=== PATIENT | female | born 1990 | race Caucasian/White ===

== ENCOUNTER 2017-01-07 08:55 | Outpatient (CLI) | payer OTHER ==
[2017-01-07 09:30] VITALS: BP 117/63
--- NOTE | 2017-01-10 11:23 | Physician Query-Final Dx ---
ANGE NUNEZ 01/10/17 1123: Clinic Account Progress/Dx Physician Query: Please give diagnosis Date of Service January 07, 2017 at 08:55 DARRON LAUREANO DO 01/10/17 1806: Clinic Account Progress/Dx DIAGNOSIS: Diagnosis 39 week IUP Uterine contractions Prolonged latent phase labor ANGE NUNEZ January 10, 2017 11:23 DARRON LAUREANO DO January 10, 2017 18:06
== END 2017-01-07 10:40 | disposition home or self-care (01) ==
LOC: LDRP 08:55 → WSo 08:55
PROVIDERS: ATTEND Obstetrics & Gynecology
DX: O47.1 False labor at or after 37 completed weeks of gestation (principal); Z3A.39 39 weeks gestation of pregnancy
CPT/HCPCS: 99213

== ENCOUNTER 2017-01-10 10:22 | Inpatient (IN) | payer OTHER ==
[~2017-01-10] VITALS: Ht 170.2 cm; Wt 90.3 kg
[2017-01-11] MEDS ORDERED: D5 LR IV SOLUTION 1,000 ML IV SCH (12:36)
[2017-01-11 12:40] VITALS: BP 118/62
[2017-01-11 13:04] LABS: BASOPHILS % (AUTO) 0 % (0-10); EOSINOPHILS # (AUTO) 0.1 10^3/uL (0.0-0.3); EOSINOPHILS % (AUTO) 1 % (0-10); LYMPHOCYTES # (AUTO) 1.4 X 10^3 (1.0-4.0); LYMPHOCYTES % (AUTO) 14 % (12-44); MEAN CORPUSCULAR HEMOGLOBIN 32 PG (25-34); MEAN CORPUSCULAR HGB CONC 34 G/DL (32-36); MEAN CORPUSCULAR VOLUME 95 FL (80-99); MEAN PLATELET VOLUME 10.8 FL (7.4-10.4); MONOCYTES # (AUTO) 1.1 X 10^3 (0.0-1.0); MONOCYTES % (AUTO) 11 % (0-12); NEUTROPHILS # (AUTO) 7.5 X 10^3 (1.8-7.8); NEUTROPHILS % (AUTO) 74 % (42-75); PLATELET COUNT 215 10^3/uL (130-400); RED BLOOD COUNT 4.15 10^6/uL (4.35-5.85); RED CELL DISTRIBUTION WIDTH 13.6 % (10.0-14.5); WHITE BLOOD COUNT 10.1 10^3/uL (4.3-11.0)
[2017-01-11] MEDS ORDERED: ceFAZolin INJECTION 1,000 MG in NS (IVPB) 50 ML IV ONE (13:45)
--- NOTE | 2017-01-11 13:45 | History & Physical-OB ---
OB - Chief Complaint & HPI Date Date of Admission: Date of Admission: January 11, 2017 at 12:20 pm Chief Complaint/History OB-Reason for Admission/Chief: Section Hx : 1 Hx Para: 0 Expected Date of Delivery: January 10, 2017 Gestational Age in Weeks: 1 Gestational Age in Days: 0 Indication for : other (Vulvar lesion with history of HSV, and outbreak in ) Admission Nurse Assessment Rev: Yes History of Labs O neg Antibody neg RI RPR NR HBsAg NR HIV NR GC neg GBS + (cef sens.) Allergies and Home Medications Allergies Coded Allergies: No Known Drug Allergies (Unverified , 01/07/17) Home Medications No Active Prescriptions or Reported Meds OB - History Hx of Present Care: Yes Ultrasounds: Normal mid trimester US Obstetrical Complications: None Medical Complications: None (HSV ) Patient Past Medical History Hypothyroidism OB - Admission Exam Physical Exam HEENT: NCAT Heart: Rhythm Normal Lungs: Clear Abdomen: Gravid Extremities: Normal Reflexes: Normal Cervical Dilatation: 1cm Effacement: 75% Station: 0 Membranes: Intact Heart Rate: 130's Accelerations: Accelerations Present Decelerations: No Decelerations Short Term Variability: Present Director [employer] Variability: Average (6-25) Contractions on Admission: 6-10 Minutes Apart Intensity: Mild Labs Laboratory Tests Test 01/11/17 12:50 Range/Units White Blood Count 10.1 4.3-11.0 10^3/uL Red Blood Count 4.15 L 4.35-5.85 10^6/uL Hemoglobin 13.4 11.5-16.0 G/DL Hematocrit 39 35-52 % Mean Corpuscular Volume 95 80-99 FL Mean Corpuscular Hemoglobin 32 25-34 PG Mean Corpuscular Hemoglobin Concent 34 32-36 G/DL Red Cell Distribution Width 13.6 10.0-14.5 % Platelet Count 215 130-400 10^3/uL Mean Platelet Volume 10.8 H 7.4-10.4 FL Neutrophils (%) (Auto) 74 42-75 % Lymphocytes (%) (Auto) 14 12-44 % Monocytes (%) (Auto) 11 0-12 % Eosinophils (%) (Auto) 1 0-10 % Basophils (%) (Auto) 0 0-10 % Neutrophils # (Auto) 7.5 1.8-7.8 X 10^3 Lymphocytes # (Auto) 1.4 1.0-4.0 X 10^3 Monocytes # (Auto) 1.1 H 0.0-1.0 X 10^3 Eosinophils # (Auto) 0.1 0.0-0.3 10^3/uL Basophils # (Auto) 0.0 0.0-0.1 10^3/uL OB - Assessment/Plan/Diagnosis Assessment Assessment: section Plan Plan: Section Other Plan Due to finding and concern of early outbreak despite prophylaxis therapy with Valtrex, patient is agreeable to proceed with PLTCS. Risk of vaginal delivery to infant if active infection noted, weighed with patient, vs risk of . All questions were answered with her present, and they were agree able to proceed with PLTCS. Discharge Diagnosis Diagnosis: 26 yo @ 40.1 weeks Vulvar lesion, with history of HSV GBS + DARRON LAUREANO DO January 11, 2017 1:44 pm
[2017-01-11] MEDS ORDERED: CATHETER FLUSH 10 ML SYR IV SCH (14:00)
[2017-01-11 15:40] VITALS: BP 109/64
[2017-01-11] MEDS ORDERED: FAMO20TA5 PO ×2 (17:17)
[2017-01-11] MEDS ORDERED: VALA500T PO ×2 (17:18)
[2017-01-11] MEDS ORDERED: LEVO200T6 PO ×2 (17:18)
[2017-01-11] MEDS ORDERED: LACTATED RINGERS 1,000 ML IV PRN (17:28)
[2017-01-11] MEDS ORDERED: METOCLOPRAMIDE INJ 10 MG/2 ML (REGLAN) IV ONE (17:30)
[2017-01-11] MEDS ORDERED: CITRIC ACID/SOB CIT (BICITRA) 30 ML UDC PO ONE (17:30)
[2017-01-11] MEDS ORDERED: FAMOTIDINE 20MG/2ML IV (PEPCID) IV ONE (17:30)
[2017-01-11] MEDS ORDERED: ceFAZolin 2 GM/50 ML NS 50 ML ONE (18:27)
[2017-01-11] MEDS: LACTATED RINGERS 1,000 ML IV PRN ×2 (18:35→21:19)
[2017-01-11] MEDS ORDERED: LIDOCAINE/EPI 1%-1:200,000 (XYLOCAINE) 30 ML VIAL INJ PRN (19:00)
[2017-01-11] MEDS ORDERED: OXYTOCIN/NORMAL SALINE 500 ML IV SCH (19:26)
--- NOTE | 2017-01-11 19:28 | Discharge Inst-Women's Service ---
Discharge Inst-Women's Serv Depart Medication/Instructions New, Converted or Re-Newed RX: RX on Chart Consults/Follow Up Additional Follow Up: Yes Orders/Referrals Dr. Caballero in 7-10 days and in 6 weeks Activity Activity: Activity as Tolerated Driving Instructions: No Driving for 1 Week NO SMOKING: NO SMOKING Nothing Inside Vagina: No Douching, No [place], No Tampons Diet Discharge Diet: No Restrictions Symptoms to Report to : Bleeding Excessive, Pain Increased, Fever Over 101 Degrees F, Vaginal Bleeding Increase, Questions/Concerns For Any Problems or Questions: Contact Your Physician Skin/Wound Care Infection Signs and Symptoms: Increased Redness, Foul Odor of Wound, Increased Drainage, Skin Itchy or Has a Rash, Increased Swelling, Temperature Above 101 F Operative Area Clean and Dry: Keep Incision Clean/Dry Stitches/Court/Dermabond: Dermabond, Care of Stitches Bathing Instructions: DARRON Avilez DO January 11, 2017 7:28 pm
[2017-01-11 19:30] VITALS: BP 117/57
[2017-01-11] MEDS ORDERED: DOCU100C37 PO ×2 (19:30)
[2017-01-11] MEDS ORDERED: HYDR-3812 PO ×2 (19:30)
[2017-01-11] MEDS ORDERED: TETANUS,DIPTH,PERTUSS P/F (BOOSTRIX) 0.5 ML VIAL IM SCH (19:30)
[2017-01-11] MEDS ORDERED: MEASLES,MUMPS,RUBELLA 1 EA INJ SC SCH (19:30)
[2017-01-11] MEDS ORDERED: ONDANSETRON 4 MG/2 ML (SDV) Z0FRAN IVP PRN (19:30)
[2017-01-11] MEDS ORDERED: HYDROmorphone (DILAUDID) 2 MG/ML VIAL IVP PRN (19:30)
[2017-01-11] MEDS ORDERED: IBUP-1773 PO ×2 (19:30)
[2017-01-11] MEDS ORDERED: OXYTOCIN/NORMAL SALINE 1,000 ML IV ONE (19:33)
[2017-01-11] MEDS ORDERED: fentaNYL INJECTION 100 MCG/2 ML AMP ONE (19:35)
[2017-01-11 19:43] VITALS: BP 117/57
[2017-01-11] MEDS ORDERED: LACTATED RINGERS 1,000 ML IV ONE (20:10)
[2017-01-11] MEDS ORDERED: PHENYLEPHRINE 100 MCG/ML 10 ML (ANESTHESIA) SYR ONE (20:10)
[2017-01-11] MEDS ORDERED: ONDANSETRON 4 MG/2 ML (SDV) Z0FRAN ONE (20:21)
[2017-01-11] MEDS ORDERED: KETOROLAC 30 MG/ML VIAL ONE (20:45)
--- NOTE | 2017-01-11 20:56 | Progress Note-Post Operative ---
Post-Operative Progess Note Surgeon (s)/Supervisor Cab (s) Surgeon DARRON LAUREANO DO Supervisor Cab: Vincenzo- MS3 Pre-Operative Diagnosis Postdates 40.3, HSV, GBS + Post-Operative Diagnosis same Procedure & Operative Findings Date of Procedure 01/11/17 Procedure Preformed/Findings PLTCS- Live male Anesthesia Type Spinal Estimated Blood Loss Estimated blood loss (mL): 600 Specimens/Packing Specimens Removed n/a Packing: none DARRON LAUREANO DO January 11, 2017 8:56 pm
[2017-01-11] MEDS: KETOROLAC 30 MG/ML VIAL IVP SCH (21:11)
[2017-01-11 22:00] VITALS: BP 96/50
[2017-01-11 23:00] VITALS: BP 103/49
[2017-01-11] MEDS: HYDROcodone/APAP 5 MG/325 MG (LORTAB) TAB PO PRN (23:45)
[2017-01-12] MEDS: HYDROcodone/APAP 5 MG/325 MG (LORTAB) TAB PO PRN ×6 (00:45→20:17)
[2017-01-12] MEDS: CATHETER FLUSH 10 ML SYR IV SCH ×2 (01:23→03:35)
[2017-01-12] MEDS: DOCUSATE SODIUM 100 MG (COLACE) CAP PO SCH ×4 (01:23→20:16)
[2017-01-12] MEDS: KETOROLAC 30 MG/ML VIAL IVP SCH ×2 (02:33→08:26)
[2017-01-12 03:48] VITALS: BP 99/57
[2017-01-12 05:54] LABS: BASOPHILS % (AUTO) 0 % (0-10); EOSINOPHILS # (AUTO) 0.2 10^3/uL (0.0-0.3); EOSINOPHILS % (AUTO) 1 % (0-10); LYMPHOCYTES # (AUTO) 1.9 X 10^3 (1.0-4.0); LYMPHOCYTES % (AUTO) 14 % (12-44); MEAN CORPUSCULAR HEMOGLOBIN 32 PG (25-34); MEAN CORPUSCULAR HGB CONC 33 G/DL (32-36); MEAN CORPUSCULAR VOLUME 97 FL (80-99); MEAN PLATELET VOLUME 10.6 FL (7.4-10.4); MONOCYTES # (AUTO) 1.3 X 10^3 (0.0-1.0); MONOCYTES % (AUTO) 10 % (0-12); NEUTROPHILS # (AUTO) 10.3 X 10^3 (1.8-7.8); NEUTROPHILS % (AUTO) 75 % (42-75); PLATELET COUNT 198 10^3/uL (130-400); RED BLOOD COUNT 3.47 10^6/uL (4.35-5.85); RED CELL DISTRIBUTION WIDTH 13.8 % (10.0-14.5); WHITE BLOOD COUNT 13.8 10^3/uL (4.3-11.0)
[2017-01-12] MEDS ORDERED: PATIENT MAY USE OWN MEDS, ALL MC SCH (06:00)
[2017-01-12] MEDS: LEVOTHYROXINE 200 MCG TAB PO SCH (06:29)
[2017-01-12] MEDS ORDERED: NON-FORMULARY MEDICATION 1 EA EA (Levothyroxine Sodium 200 MCG) PO SCH (09:00)
[2017-01-12 09:40] VITALS: BP 110/61
--- NOTE | 2017-01-12 09:41 | Progress Note-Standard ---
Standard Progress Note Progress Notes/Assess & Plan Progress/Assessment & Plan Patient doing well, no concerns voiced. Pain is somewhat controlled as expected on pain meds. Lochia moderate. Tolerating regular diet. Ambulating and voiding freely. Vital Sign - Last 24 Hours 01/11/17 01/11/17 01/11/17 01/11/17 12:40 15:40 19:30 19:43 Temp 97.4 98.0 97.3 97.3 Pulse 79 68 75 75 Resp 18 20 20 B/P (MAP) 118/62 109/64 117/57 117/57 01/11/17 01/11/17 01/12/17 22:00 23:00 03:48 Temp 97.6 98.0 98.2 Pulse 79 80 74 Resp 18 18 18 B/P (MAP) 96/50 103/49 99/57 Pulse Ox 98 100 98 Intake and Output 01/11/17 01/11/17 01/12/17 15:00 23:00 07:00 Intake Total 1732 ml 2500 ml Output Total 785 ml 550 ml Balance 947 ml 1950 ml Laboratory Tests Test 01/11/17 12:50 01/12/17 05:38 Range/Units White Blood Count 10.1 13.8 H 4.3-11.0 10^3/uL Red Blood Count 4.15 L 3.47 L 4.35-5.85 10^6/uL Hemoglobin 13.4 11.2 L 11.5-16.0 G/DL Hematocrit 39 34 L 35-52 % Mean Corpuscular Volume 95 97 80-99 FL Mean Corpuscular Hemoglobin 32 32 25-34 PG Mean Corpuscular Hemoglobin Concent 34 33 32-36 G/DL Red Cell Distribution Width 13.6 13.8 10.0-14.5 % Platelet Count 215 198 130-400 10^3/uL Mean Platelet Volume 10.8 H 10.6 H 7.4-10.4 FL Neutrophils (%) (Auto) 74 75 42-75 % Lymphocytes (%) (Auto) 14 14 12-44 % Monocytes (%) (Auto) 11 10 0-12 % Eosinophils (%) (Auto) 1 1 0-10 % Basophils (%) (Auto) 0 0 0-10 % Neutrophils # (Auto) 7.5 10.3 H 1.8-7.8 X 10^3 Lymphocytes # (Auto) 1.4 1.9 1.0-4.0 X 10^3 Monocytes # (Auto) 1.1 H 1.3 H 0.0-1.0 X 10^3 Eosinophils # (Auto) 0.1 0.2 0.0-0.3 10^3/uL Basophils # (Auto) 0.0 0.0 0.0-0.1 10^3/uL Incision: c/d/i Diagnosis: POD 1 PLTCS HSV GBS + P: Continue routine po care Anticipate dc tomorrow. DARRON LAUREANO DO January 12, 2017 9:41 am
[2017-01-12] MEDS: VALACYCLOVIR 500 MG TAB (VALTREX) PO SCH (09:44)
[2017-01-12] MEDS: FAMOTIDINE 20 MG (PEPCID) TABLET PO SCH (09:44)
--- NOTE | 2017-01-12 11:38 | OPERATIVE REPORT ---
DATE OF SERVICE: 01/11/2017 PREOPERATIVE DIAGNOSES: 1. A 26-year-old at 40 weeks' gestation. 2. Herpes simplex virus. 3. GBS positive. POSTOPERATIVE DIAGNOSES: 1. A 26-year-old at 40 weeks' gestation. 2. Herpes simplex virus. 3. GBS positive. PROCEDURE: Primary low transverse section. SURGEON: Daniel Caballero DO ANESTHESIA: Spinal. ESTIMATED BLOOD LOSS: 600 mL. URINE OUTPUT: 125 mL. FLUIDS: 1300 mL of lactated Ringer's solution. FINDINGS: A live male weighing 8 pounds 3 ounces with Apgars of 9 and 9. Grossly normal appearing uterus, bilateral fallopian tubes and ovaries. SPECIMENS SENT: Placenta. INDICATION FOR PROCEDURE: This 26-year-old patient is a patient that had sought care in my office. Her was unremarkable with the exception of hypothyroidism which was managed and followed as well as a history of HSV. The patient had an active outbreak early in the second trimester in the . The patient reported today on examination that her postdate exam, when she underwent anesthesia, that she had quite a bit of vaginal irritation. We discussed the questionable outbreak of HSV towards the end of her and its repercussions on the and mode of delivery. I discussed with the patient if there is any underlying concern that this may be an HSV outbreak my recommendation would be to proceed with . Due to that finding and the questionable status of her HSV outbreak, the patient elected to proceed with primary . The risks of the procedure were discussed with the patient in detail, including the risks of bleeding, infection, damage to any surrounding structures, including but not limited to bowel, bladder, ureter, kidneys, risk of need for blood transfusion, hysterectomy and even were all discussed with the patient. We discussed mode of vaginal delivery and the possibility of HSV contraction if there was an active outbreak and what this would mean for the infant. After that was discussed with the patient, her and her both agreed that primary would be a better course of plan, which I agreed with and recommended to proceed with. Consent was obtained and the patient was then taken to the operating room. OPERATIVE REPORT IN DETAIL: Once in the operating room, spinal analgesia was found to be adequate. She was placed in the supine position with leftward tilt, prepped and draped in normal sterile fashion. A timeout was performed and anesthesia was tested. A Pfannenstiel skin incision was then made with a knife and carried down to the underlying fascia using the Bovie cautery. The fascial incision is extended laterally using Bovie cautery. The superior aspect of the fascial incision was then grasped with Savannah clamps, tented up and dissected off the underlying rectus muscles. The inferior aspect of the fascial incision was then grasped with [place] clamps, tented up and dissected off the underlying rectus muscles. The rectus muscles were then dissected down in the midline using Guillaume scissors, which exposed the peritoneum which I am able to enter bluntly using my digits and extend with blunt traction. Kevin retractor was placed into the peritoneal incision, which offers excellent lateral sidewall retraction. I then made an incision to the vesicouterine peritoneum on the low transverse fashion and bluntly dissect the peritoneum up to the lower uterine segment, producing a bladder flap. I then proceed with myotomy until membranes are visualized, at which point I extended the uterine incision laterally and superiorly using the bandage scissors. Amniotomy was performed using an Allis clamp. Clear fluid was noted. The infant was found in vertex presentation. With gentle fundal pressure, the infant's head was delivered up through the incision, where it is bulb suctioned, both nares and oropharynx. Anterior and posterior shoulders were delivered. The infant was then brought into the operative field, where cord is doubly clamped and cut. The was handed off to the waiting nurses in attendance. Cord blood was collected. Three-vessel cord with placenta was delivered spontaneously thereafter. IV Pitocin was initiated to facilitate uterine contraction. Uterine fundus became firmer with bimanual massage. The uterus was then exteriorized and cleared of all endometrial clots and debris. I then closed the uterine incision using 0 Vicryl suture in a running locked fashion, a second layer of imbricating 0 Monocryl is placed. Excellent hemostasis was noted after doing so. I then proceeded with copiously irrigated the pelvis with normal saline. There was no active bleeding noted from any dissection planes. I then placed Interceed adhesion over my low transverse incision and proceeded with closing the peritoneum using 2-0 Vicryl suture in running fashion. A layer of 3-0 Vicryl suture was placed in the rectus muscles, reapproximating in an interrupted fashion. The fascia was reapproximated using 0 Vicryl suture in running fashion. The subcutaneous tissue was reapproximated using 3-0 plain in an interrupted subcutaneous stitch. The skin was reapproximated using 4-0 Monocryl in a running subcuticular. Dermabond was placed over the incision and a sterile dressing and adhesed with white tape. The patient tolerated the procedure well and was taken to the recovery area in stable condition. Lap and sponge counts were correct at the end of the procedure. Needle count was correct as well. Job ID: [id number] DocumentID: [id number] Dictated Date: 01/11/2017 21:01:18 Scheduling Clerk Date: 01/12/2017 11:37:57 Dictated By: DO GAIL MICHAELS
--- NOTE | 2017-01-12 12:36 | Anesthesia-Regional Post-Op ---
Regional Patient Condition Mental Status: Alert, Oriented x3 Circulation: Same as Pre-Op Headache: Absent Sensation: Full Recovery Motor Block: Absent Post Op Complications Complications None Follow Up Care/Instructions Patient Instructions None needed. Anesthesia/Patient Condition Patient is doing well, no complaints, stable vital signs, no apparent adverse anesthesia problems. No complications reported per nursing. JADA FOOTE CRNA January 12, 2017 12:36
[2017-01-12 13:40] VITALS: BP 103/60
[2017-01-12] MEDS ORDERED: IBUPROFEN 600 MG (MOTRIN) TAB PO ONE (14:51)
[2017-01-12] MEDS: IBUPROFEN 600 MG (MOTRIN) TAB PO SCH ×2 (14:57→20:17)
[2017-01-12 20:17] VITALS: BP 110/64
[2017-01-13] MEDS: VALACYCLOVIR 500 MG TAB (VALTREX) PO SCH ×3 (00:27→21:55)
[2017-01-13] MEDS: HYDROcodone/APAP 5 MG/325 MG (LORTAB) TAB PO PRN ×5 (00:28→21:54)
[2017-01-13 03:29] VITALS: BP 105/56
[2017-01-13] MEDS: IBUPROFEN 600 MG (MOTRIN) TAB PO SCH ×4 (03:29→21:54)
[2017-01-13] MEDS: FAMOTIDINE 20 MG (PEPCID) TABLET PO SCH ×3 (06:01→21:55)
[2017-01-13] MEDS: LEVOTHYROXINE 200 MCG TAB PO SCH (06:01)
--- NOTE | 2017-01-13 08:55 | Progress Note-Standard ---
Standard Progress Note Progress Notes/Assess & Plan Progress/Assessment & Plan Patient doing well, no concerns voiced. Pain is somewhat controlled as expected on pain meds. Lochia moderate. Tolerating regular diet. Ambulating and voiding freely. Vital Sign - Last 24 Hours 01/12/17 01/12/17 01/12/17 01/13/17 09:40 13:40 20:17 03:29 Temp 98.0 97.6 97.8 98.0 Pulse 80 77 82 80 Resp B/P (MAP) 110/61 103/60 110/64 105/56 Pulse Ox 8 98 98 Intake and Output 01/12/17 01/12/17 01/13/17 15:00 23:00 07:00 Intake Total 1000 ml Balance 1000 ml Incision: c/d/i Diagnosis: POD 2 PLTCS HSV GBS + P: Continue routine po care Anticipate dc later today or tomorrow morning. DARRON LAUREANO DO January 13, 2017 8:55 am
[2017-01-13] MEDS: DOCUSATE SODIUM 100 MG (COLACE) CAP PO SCH ×2 (09:01→21:54)
[2017-01-13 09:10] VITALS: BP 102/64
[2017-01-13 14:05] VITALS: BP 105/66
[2017-01-13 21:00] VITALS: BP 110/61
[2017-01-14] MEDS: IBUPROFEN 600 MG (MOTRIN) TAB PO SCH ×3 (03:42→15:27)
[2017-01-14 03:43] VITALS: BP 116/70
[2017-01-14] MEDS: HYDROcodone/APAP 5 MG/325 MG (LORTAB) TAB PO PRN ×3 (03:43→14:48)
[2017-01-14] MEDS: LEVOTHYROXINE 200 MCG TAB PO SCH (06:44)
[2017-01-14 08:00] VITALS: BP 112/69
[2017-01-14] MEDS: VALACYCLOVIR 500 MG TAB (VALTREX) PO SCH (09:37)
[2017-01-14] MEDS: FAMOTIDINE 20 MG (PEPCID) TABLET PO SCH (09:37)
[2017-01-14] MEDS: DOCUSATE SODIUM 100 MG (COLACE) CAP PO SCH (10:44)
[2017-01-14 12:00] VITALS: BP 104/69
[2017-01-14 16:30] VITALS: BP 111/76
== END 2017-01-14 17:55 | disposition home or self-care (01) | DRG 766 ==
LOC: EDUNIT# 10:22 → LDRP 01-11 12:20
PROVIDERS: ADMIT Obstetrics & Gynecology; ATTEND Obstetrics & Gynecology
PROC: 10D00Z1 Extraction of Products of Conception, Low, Open Approach (ICD-10-PCS; principal; 2017-01-11 19:54)
DX: O98.52 Other viral diseases complicating childbirth (principal); O48.0 Post-term pregnancy; O99.824 Streptococcus B carrier state complicating childbirth; O99.284 Endocrine, nutritional and metabolic diseases complicating childbirth; E03.9 Hypothyroidism, unspecified; Z37.0 Single live birth; Z3A.40 40 weeks gestation of pregnancy
CPT/HCPCS: 36415; 83033; 85025; 86850; 86900; 86901; 94664

== ENCOUNTER → 2017-11-28 | Outpatient (CLI) | payer BC, OTHER ==
[~2017-11-28] MED LIST: ACHD5005 PO; DOCU100C37 PO; FAMO20TA5 PO; IBUP-1773 PO; LEVO200T6 PO; VALA500T PO
--- NOTE | 2017-11-28 14:05 | Diagnostic Imaging Report ---
INDICATION: Pelvic pain. TECHNIQUE: Multiple real-time grayscale images were obtained of the pelvis both transabdominally and endovaginally. FINDINGS: The uterus is retroflexed measures 6.4 x 2.5 x 3.8 cm. The endometrial thickness is 4 mm. The IUD appears to be in satisfactory position. Right ovary is normal in size, morphology and demonstrates normal blood flow. Left ovary is obscured by bowel gas. There are no adnexal masses. There is no free pelvic fluid. IMPRESSION: Retroverted uterus. IUD appears to be in satisfactory position. Nonvisualization of left ovary. Dictated by: Dictated on workstation # [id number]
== END ==
LOC: RAD 12:52
PROVIDERS: ATTEND Obstetrics & Gynecology
DX: N85.4 Malposition of uterus (principal); Z30.431 Encounter for routine checking of intrauterine contraceptive device
CPT/HCPCS: 76830; 76856

== ENCOUNTER → 2019-06-27 | Outpatient (CLI) | payer BC, OTHER ==
--- NOTE | 2019-06-27 12:53 | Diagnostic Imaging Report ---
INDICATION: survey. TECHNIQUE: Multiple real-time grayscale images were obtained over the gravid uterus. COMPARISON: None. FINDINGS: There is a single live fetus in a cephalic presentation. heart rate was recorded at 155 beats per minute. The placenta is anterior. The amniotic fluid volume is normal. Cervical length is 4.6 cm. kidneys, bladder and stomach are unremarkable apart from some mild prominence of the left renal pelvis measuring up to 5 mm. brain is unremarkable. There is a four-chambered heart.. There is a three-vessel cord with normal insertion. spine is unremarkable. Biometrical measurements are as follows: Biparietal 4.71 cm, age 20 weeks 2 days. Head circumference 17.51 cm, age 20 weeks 1 days. Abdominal circumference 14.48 cm, age 19 weeks 6 days. Femur length 3.18 cm, age 20 weeks 0 days. Sonographic estimate age: 20 weeks 1 days. Sonographic estimated date of delivery: 11/13/2019. Estimated Weight: 318 gm (+/- 47 gm). LMP percentile: 38%. heart rate: 155 beats per minute. number: 1 of 1. IMPRESSION: Single live IUP 20 weeks 1 day gestational age with an estimated date of confinement sonographically of 11/13/2019. survey is unremarkable apart from very mild prominence of the left renal pelvis. Follow-up could be performed. Dictated by: Dictated on workstation # [id number]
== END ==
LOC: RAD 11:35
PROVIDERS: ATTEND Obstetrics & Gynecology
DX: Z34.92 Encounter for supervision of normal pregnancy, unspecified, second trimester (principal); Z3A.20 20 weeks gestation of pregnancy
CPT/HCPCS: 76805

== ENCOUNTER 2019-11-01 05:33 | Outpatient (CLI) | payer OTHER ==
[~2019-11-01] VITALS: Ht 167 cm; Wt 97.2 kg
[~2019-11-01 05:33] MED LIST changes: -VALA500T PO; +VALA500T7 PO
[2019-11-01] MEDS ORDERED: LEVO150T6 PO (13:29)
[2019-11-01] MEDS ORDERED: PREN1TAB79 PO (13:29)
[2019-11-01] MEDS ORDERED: SERT25TA5 PO (13:29)
== END 2019-11-01 13:58 | disposition home or self-care (01) ==
LOC: PREOP 05:33
PROVIDERS: ATTEND Obstetrics & Gynecology
DX: Z01.818 Encounter for other preprocedural examination (principal)

== ENCOUNTER 2019-11-07 06:57 | Inpatient (IN) | payer OTHER ==
[2019-11-07] VITALS (10 sets, daily range): BP systolic 90–121; BP diastolic 41–77
[~2019-11-07] VITALS: Ht 167.7 cm; Wt 96.5 kg
[~2019-11-07 06:57] MED LIST changes: +LEVO150T6 PO; +PREN1TAB79 PO; +SERT25TA5 PO
--- NOTE | 2019-11-07 07:05 | NUR ---
ANITHA ROACH presented to unit via ambulation from home, accompanied by , for PREVIOUS C SECTION. ANITHA ROACH weighed, gowned, voided, and to bed. EFHM and TOCO applied, VS taken. ANITHA ROACH oriented to bed controls, call light, TV, heat, and A/C controls.
[2019-11-07] MEDS ORDERED: CATHETER FLUSH 10 ML SYR IV PRN (07:30)
[2019-11-07] MEDS ORDERED: FAMOTIDINE 20MG/2ML IV (PEPCID) IVP ONE (07:30)
[2019-11-07] MEDS ORDERED: ceFAZolin 2 GM/50 ML NS 50 ML IV ONE (07:30)
[2019-11-07] MEDS ORDERED: CITRIC ACID/SOB CIT (BICITRA) 30 ML UDC PO ONE (07:30)
[2019-11-07] MEDS ORDERED: METOCLOPRAMIDE INJ 10 MG/2 ML (REGLAN) IV ONE (07:30)
--- NOTE | 2019-11-07 07:38 | NUR ---
#18g IV to Rt.FA x1 attempt by this RN. site patent. admission labs collected from site prior to IVF's infusing.
--- NOTE | 2019-11-07 07:45 | NUR ---
c/s consent signed, placed on chart.
[2019-11-07 07:59] LABS: BASOPHILS % (AUTO) 0 % (0-10); EOSINOPHILS # (AUTO) 0.3 10^3/uL (0.0-0.3); EOSINOPHILS % (AUTO) 2 % (0-10); HEMATOCRIT 39 % (35-52); LYMPHOCYTES # (AUTO) 1.9 X 10^3 (1.0-4.0); LYMPHOCYTES % (AUTO) 18 % (12-44); MEAN CORPUSCULAR HEMOGLOBIN 31 PG (25-34); MEAN CORPUSCULAR HGB CONC 34 G/DL (32-36); MEAN CORPUSCULAR VOLUME 93 FL (80-99); MEAN PLATELET VOLUME 11.2 FL (7.4-10.4); MONOCYTES # (AUTO) 1.2 X 10^3 (0.0-1.0); MONOCYTES % (AUTO) 11 % (0-12); NEUTROPHILS # (AUTO) 7.3 X 10^3 (1.8-7.8); NEUTROPHILS % (AUTO) 69 % (42-75); PLATELET COUNT 204 10^3/uL (130-400); RED CELL DISTRIBUTION WIDTH 15.1 % (10.0-14.5); WHITE BLOOD COUNT 10.7 10^3/uL (4.3-11.0)
[2019-11-07] MEDS ORDERED: LACTATED RINGERS 1,000 ML IV ONE ×2 (08:00→08:43)
--- NOTE | 2019-11-07 08:22 | History & Physical-OB ---
OB - Chief Complaint & HPI Date/Time Date of Admission: Date of Admission: Nov 07, 2019 at 06:57 Date seen by a Provider: Nov 07, 2019 Time Seen by a Provider: 08:15 Chief Complaint/History OB-Reason for Admission/Chief: Section Hx : 2 Hx Para: 1 Expected Date of Delivery: Nov 14, 2019 Gestational Age in Weeks: 39 Gestational Age in Days: 0 Indication for : desires repeat Admission Nurse Assessment Rev: Yes History of Labs O neg Antibody neg RI RPR NR HBsAg NR HIV NR GC neg GBS neg Allergies and Home Medications Allergies Coded Allergies: Penicillins (Verified Allergy, Severe, HIVES/DIFFICULTY BREATHING, 11/07/19) Home Medications Famotidine 20 Mg Tablet, 20 MG PO DAILY, (Reported) Levothyroxine Sodium 150 Mcg Tablet, 150 MCG PO DAILY, (Reported) Vit W-Ca,Fe,FA(<1 mg) 1 Each Tablet, 1 EACH PO DAILY, (Reported) Sertraline HCl 25 Mg Tablet, 25 MG PO DAILY, (Reported) Valacyclovir HCl 500 Mg Tablet, 500 MG PO TID, (Reported) Patient Home Medication List Home Medication List Reviewed: Yes OB - History Hx of Present Care: Yes Ultrasounds: Normal mid trimester US Obstetrical Complications: None Medical Complications: None Delivery History Adverse Rxn to Tranfusion: No (N/A) Patient Past Medical History Hypothyroidism Social History/Family History HIV/AIDS: No Sexually Transmitted Disease: Yes (HSV) Immunizations Hepatitis A: No Hepatitis B: No Date of Influenza Vaccine: Jun 04, 2019 OB - Admission Exam Physical Exam HEENT: NCAT Heart: Rhythm Normal Lungs: Clear Abdomen: Gravid Extremities: Normal Reflexes: Normal Heart Rate: 130's Accelerations: Accelerations Present Decelerations: No Decelerations Short Term Variability: Present Custodial Variability: Average (6-25) Contractions on Admission: >10 Minutes Apart Labs Laboratory Tests Test 11/07/19 07:38 Range/Units White Blood Count 10.7 4.3-11.0 10^3/uL Red Blood Count 4.14 L 4.35-5.85 10^6/uL Hemoglobin 13.0 11.5-16.0 G/DL Hematocrit 39 35-52 % Mean Corpuscular Volume 93 80-99 FL Mean Corpuscular Hemoglobin 31 25-34 PG Mean Corpuscular Hemoglobin Concent 34 32-36 G/DL Red Cell Distribution Width 15.1 H 10.0-14.5 % Platelet Count 204 130-400 10^3/uL Mean Platelet Volume 11.2 H 7.4-10.4 FL Neutrophils (%) (Auto) 69 42-75 % Lymphocytes (%) (Auto) 18 12-44 % Monocytes (%) (Auto) 11 0-12 % Eosinophils (%) (Auto) 2 0-10 % Basophils (%) (Auto) 0 0-10 % Neutrophils # (Auto) 7.3 1.8-7.8 X 10^3 Lymphocytes # (Auto) 1.9 1.0-4.0 X 10^3 Monocytes # (Auto) 1.2 H 0.0-1.0 X 10^3 Eosinophils # (Auto) 0.3 0.0-0.3 10^3/uL Basophils # (Auto) 0.0 0.0-0.1 10^3/uL OB - Assessment/Plan/Diagnosis Assessment Assessment: section Admission Dx 29 yo @ 39 weeks Previous Admission Status: Inpatient Order (span 2 midnights) Reason for Inpatient Admission: Repeat at 39 weeks Plan Plan: Section DARRON LAUREANO DO Nov 07, 2019 08:22
[2019-11-07] MEDS ORDERED: OXYTOCIN PRE-MIX DRIP 500 ML IV SCH (08:35)
--- NOTE | 2019-11-07 08:42 | Discharge Inst-Women's Service ---
Discharge Inst-Women's Serv Depart Medication/Instructions New, Converted or Re-Newed RX: RX on Chart Final Diagnosis POD 2 RLTCS Problems Reviewed?: Yes Consults/Follow Up Additional Follow Up: Yes Orders/Referrals Dr. Caballero in 7-10 days and in 6 weeks Activity Activity: Activity as Tolerated Driving Instructions: No Driving for 1 Week NO SMOKING: NO SMOKING Nothing Inside Vagina: No Douching, No [place], No Tampons Diet Discharge Diet: No Restrictions Symptoms to Report to : Bleeding Excessive, Pain Increased, Fever Over 101 Degrees F, Vaginal Bleeding Increase, Questions/Concerns For Any Problems or Questions: Contact Your Physician Skin/Wound Care Infection Signs and Symptoms: Increased Redness, Foul Odor of Wound, Increased Drainage, Skin Itchy or Has a Rash, Increased Swelling, Temperature Above 101 F Operative Area Clean and Dry: Keep Incision Clean/Dry Stitches/Court/Dermabond: Dermabond, Care of Stitches Bathing Instructions: DARRON Avilez DO Nov 07, 2019 08:42
[2019-11-07] MEDS ORDERED: Hydrocodone Bit/Acetaminophen PO (08:44)
[2019-11-07] MEDS ORDERED: IBUP-844 PO (08:44)
[2019-11-07] MEDS ORDERED: DCS100C PO (08:44)
[2019-11-07] MEDS ORDERED: MEASLES,MUMPS,RUBELLA 1 EA INJ SC SCH (08:45)
[2019-11-07] MEDS ORDERED: TETANUS,DIPTH,PERTUSS P/F (BOOSTRIX) 0.5 ML VIAL IM SCH (08:45)
[2019-11-07] MEDS ORDERED: ONDANSETRON 4 MG/2 ML (SDV) Z0FRAN IVP PRN (08:45)
[2019-11-07] MEDS: CATHETER FLUSH 10 ML SYR IV SCH ×2 (08:52→22:05)
[2019-11-07] MEDS ORDERED: OXYTOCIN PRE-MIX DRIP 500 ML IV ONE (08:52)
[2019-11-07] MEDS ORDERED: fentaNYL INJECTION 100 MCG/2 ML AMP ONE (08:52)
--- NOTE | 2019-11-07 09:00 | NUR ---
monitors dc'd. pt ambulated to OR with staff @ side. pt stable with no sx's of distress noted.
[2019-11-07] MEDS ORDERED: PHENYLEPHRINE 100 MCG/ML 10 ML (ANESTHESIA) SYR ONE (09:12)
[2019-11-07] MEDS ORDERED: BUPIVACAINE 0.5% 30 ML (SENSORCAINE) VIAL ONE (09:34)
[2019-11-07] MEDS ORDERED: KETOROLAC 30 MG/ML VIAL ONE (09:43)
[2019-11-07] MEDS: KETOROLAC 30 MG/ML VIAL IV SCH ×3 (10:05→22:05)
--- NOTE | 2019-11-07 11:07 | NUR ---
joshua catheter dc'd. 60ml urine noted. lucy-care offered. v-pad in place.
--- NOTE | 2019-11-07 11:11 | NUR ---
pt transferred to room 307 via bed with this RN @ side. pt stable with no sx's of distress noted.
--- NOTE | 2019-11-07 12:30 | NUR ---
FFu/2. lt rubra noted. no clots expressed. lucy-care offered. v-pad and panties in place. reports bottom of feet heavy, able to move LE's upon command.
--- NOTE | 2019-11-07 12:35 | NUR ---
up with assist to w/c. transferred to nursery for bonding with .
--- NOTE | 2019-11-07 13:25 | NUR ---
TRANSFERRED BACK TO ROOM 307 VIA W/C FROM NURSERY. ASSISTED TO BED. SLIGHT DECREASED SENSATION IN LEGS. LUNCH SERVED. REQUESTS PAIN MEDS.
[2019-11-07] MEDS: HYDROcodone/APAP 5 MG/325 MG (LORTAB) TAB PO PRN ×2 (13:34→20:06)
--- NOTE | 2019-11-07 13:34 | NUR ---
LORTAB 5/325 2 TABS P.O. FOR C/O ABD PAIN RATED 5/10. FAMILY AT BEDSIDE.
--- NOTE | 2019-11-07 13:35 | OPERATIVE REPORT ---
DATE OF SERVICE: PREOPERATIVE DIAGNOSES: 1. A 29-year-old G2, P1 at 39 weeks gestation. 2. Previous section. POSTOPERATIVE DIAGNOSES: 1. A 29-year-old G2, P1 at 39 weeks gestation. 2. Previous section. PROCEDURE PERFORMED: Repeat low transverse section. SURGEON: Daniel Laureano DO SPORTS ATTORNEY: Malu Harrison DNP, who was necessary for retraction and manipulation throughout the procedure. ANESTHESIA: Spinal. ESTIMATED BLOOD LOSS: 500 mL. URINE OUTPUT: 200 mL clear at the end of the procedure. FLUIDS: 2300 mL of lactated Ringer's solution. FINDINGS: A live male weighing 8 pounds 7 ounces, Apgars of 7 and 8. Grossly normal appearing uterus, bilateral fallopian tubes and ovaries. SPECIMEN SENT: None. INDICATIONS FOR PROCEDURE: This 29-year-old female is a patient, who had sought care in my office during her care. It was uncomplicated; however, we did intake counselor her about repeat , which the patient elected to proceed with. The risk of the procedure had already been reviewed with the patient with the previous procedure. However, once again, it was reviewed through her care. All of her questions were answered pertaining to risk, recovery time frame and expectations and restrictions after the procedure. After all of her questions were answered and consent was obtained in the preoperative area, the patient was taken to the operating room. OPERATIVE REPORT IN DETAIL: Once in the operating room, spinal anesthesia was found to be adequate. She placed in the supine position with a leftward tilt, prepped and draped in a normal sterile fashion. A Pfannenstiel skin incision was made through the previously existing scar using knife and carried down the underlying fascia using Bovie cautery. The fascial incision was extended laterally using Bovie cautery. Superior aspect of fascial incision was then grasped with Savannah clamps, tented up and dissected off the underlying rectus muscles. The inferior aspect of the fascial incision was then grasped with Savannah clamps, tented up and dissected off the underlying rectus muscles. Rectus muscles were then dissected down the midline using Guillaume scissors, which exposed the peritoneum, which I entered bluntly and extended using blunt traction. Kevin ring retractor was placed in the peritoneal incision, which offers excellent lateral sidewall retraction. The lower uterine segment was then identified and found to be thinned out. I created a low transverse incision to the vesicouterine peritoneum and bluntly dissected off the lower uterine segment. I proceeded with myotomy until membranes were visualized, at which point I extended the uterine incision laterally and superiorly using bandage scissors. Amniotomy was performed in the process of doing this and clear fluid was noted. was found in a vertex presentation. With gentle fundal pressure, the infant's head was elevated up to the incision where it was delivered through the incision. The nares and oropharynx were bulb suctioned. Anterior and posterior shoulders were delivered. was then brought to the operative field. The cord was doubly clamped and cut and infant was handed off to the awaiting nurses in attendance. Cord blood was collected. The 3-vessel cord with intact placenta was delivered spontaneously thereafter. IV Pitocin was initiated to facilitate uterine contraction. Uterine fundus became firmer by manual massage. The uterus was then exteriorized and cleared of all endometrial clots and debris. I then closed the uterine incision using 0 Vicryl suture in a running locked fashion. Second layer of imbricating 0 Monocryl was placed. Excellent hemostasis was noted after doing this. I then placed the uterus back into the pelvis and copiously irrigated the pelvis using normal saline. Once again, there was no active bleeding noted from any of my dissection planes. I placed Interceed antiadhesive over my low transverse incision. I then removed the Kevin ring retractor and proceeded with closing the peritoneum using 3-0 Vicryl suture in a running fashion. The rectus muscle was reapproximated using 3-0 Vicryl suture in an interrupted fashion. The fascia was reapproximated using 0 Vicryl suture in a running fashion. The subcutaneous tissue was reapproximated using 3-0 plain interrupted subcutaneous stitch. The skin was reapproximated using a 4-0 Monocryl running subcuticular. Dermabond was applied to the incision and sterile dressing with adhesive white tape. The patient tolerated the procedure well and was taken to the recovery area in a stable condition. Lap and sponge counts were correct at the end of the procedure. Instrument counts were correct as well. Two grams of Ancef were given preoperatively for infection prophylaxis. Job ID: [id number] DocumentID: [id number] Dictated Date: 11/07/2019 10:23:57 Active Directory Specialist Date: 11/07/2019 13:34:08 Dictated By: DANIEL LAUREANO DO
--- NOTE | 2019-11-07 17:30 | NUR ---
pt up to BR by self. voided without difficulty.
--- NOTE | 2019-11-07 19:10 | NUR ---
report given to next shift.
[2019-11-07] MEDS: DOCUSATE SODIUM 100 MG (COLACE) CAP PO SCH (20:36)
--- NOTE | 2019-11-08 00:31 | NUR ---
NO SCDs. PT STATED SHE WAS HOT.
[2019-11-08] MEDS: HYDROcodone/APAP 5 MG/325 MG (LORTAB) TAB PO PRN ×4 (02:15→20:21)
[2019-11-08] MEDS: CATHETER FLUSH 10 ML SYR IV SCH (03:58)
[2019-11-08] MEDS: KETOROLAC 30 MG/ML VIAL IV SCH (03:58)
[2019-11-08 04:25] VITALS: BP 137/80
[2019-11-08 06:25] LABS: BASOPHILS % (AUTO) 0 % (0-10); EOSINOPHILS # (AUTO) 0.3 10^3/uL (0.0-0.3); EOSINOPHILS % (AUTO) 3 % (0-10); HEMATOCRIT 37 % (35-52); HEMOGLOBIN 12.1 G/DL (11.5-16.0); LYMPHOCYTES # (AUTO) 1.7 X 10^3 (1.0-4.0); LYMPHOCYTES % (AUTO) 14 % (12-44); MEAN CORPUSCULAR HEMOGLOBIN 31 PG (25-34); MEAN CORPUSCULAR HGB CONC 33 G/DL (32-36); MEAN CORPUSCULAR VOLUME 94 FL (80-99); MEAN PLATELET VOLUME 10.8 FL (7.4-10.4); MONOCYTES # (AUTO) 0.9 X 10^3 (0.0-1.0); MONOCYTES % (AUTO) 7 % (0-12); NEUTROPHILS # (AUTO) 9.2 X 10^3 (1.8-7.8); NEUTROPHILS % (AUTO) 76 % (42-75); PLATELET COUNT 197 10^3/uL (130-400); RED CELL DISTRIBUTION WIDTH 15.5 % (10.0-14.5); WHITE BLOOD COUNT 12.2 10^3/uL (4.3-11.0)
--- NOTE | 2019-11-08 07:58 | Postpartum Progress Note ---
DAVIS GREER MED STUDENT 11/08/19 0758: Note Note Day # [1] Subjective: Patient states she has no concerns, but does have pain. Reports a 5/10 constatn ache near her incision site and in her lower back that is 7/10 with movement. She ambulated yesterday following her , but today is not ambulating due to her pain. voiding. Tolerating a regular diet without nausea or vomiting. Normal lochia. No issues with urination. Has had flatus but no bowel movements, is concerned because after her last she reports not having a bowel movement for a week. Has been her child. Objective: [Vitals: Temp 36.2 C. HR 78, RR 18, BP 137/80 WBC 12.2, RBC 3.91] Physical Exam: General - Alert and oriented, no apparent distress Abdomen - Soft, appropriately tender to palpation, non-distended, fundus firm at umbilicus Extremities - no edema, negative Enoc's bilaterally [] Assessment: [] post- day # [1], status post [] delivery. Recovering well, hemodynamically stable Pain in lower back and incision site [] Plan: Routine care. Encourage breast feeding. Encourage ambulation. Ferrous sulfate supplementation. Plan for discharge [] Vitals - Labs Vital Signs - I&O Vital Signs Date Time Temp Pulse Resp B/P (MAP) Pulse Ox O2 Delivery O2 Flow Rate FiO2 11/08/19 04:25 36.2 78 18 137/80 (99) 98 Room Air 11/07/19 23:47 36.4 86 16 105/60 (75) 98 Room Air 11/07/19 21:00 Room Air 11/07/19 20:00 36.7 71 16 113/64 (80) 96 Room Air 11/07/19 16:00 36.2 68 18 105/65 (78) 98 Room Air 11/07/19 14:37 98 0.00 11/07/19 11:00 35.4 16 121/77 (92) 100 Room Air 11/07/19 11:00 Room Air 11/07/19 10:44 36.0 16 116/75 (89) 100 Room Air 11/07/19 10:44 Room Air 11/07/19 10:26 36.2 16 90/58 (69) 98 Room Air 11/07/19 10:26 Room Air 11/07/19 10:11 36.2 16 105/41 (62) 100 Room Air 11/07/19 08:40 78 18 107/66 (80) Room Air 11/07/19 08:10 74 18 119/74 (89) Room Air I & O 11/08/19 07:00 Intake Total 1600 ml Output Total 5400 ml Balance -3800 ml Labs Laboratory Tests 11/08/19 06:07: White Blood Count 12.2H, Red Blood Count 3.91L, Hemoglobin 12.1, Hematocrit 37, Mean Corpuscular Volume 94, Mean Corpuscular Hemoglobin 31, Mean Corpuscular Hemoglobin Concent 33, Red Cell Distribution Width 15.5H, Platelet Count 197, Mean Platelet Volume 10.8H, Neutrophils (%) (Auto) 76H, Lymphocytes (%) (Auto) 14, Monocytes (%) (Auto) 7, Eosinophils (%) (Auto) 3, Basophils (%) (Auto) 0, Neutrophils # (Auto) 9.2H, Lymphocytes # (Auto) 1.7, Monocytes # (Auto) 0.9, Eosinophils # (Auto) 0.3, Basophils # (Auto) 0.0 DONNIE CHUNG 11/09/19 1050: DAVIS GREER MED STUDENT Nov 08, 2019 07:58 DONNIE CHUNG Nov 09, 2019 10:50
--- NOTE | 2019-11-08 08:34 | Postpartum Progress Note ---
Note Note Day # 1 Subjective: Patient is without complaints. Ambulating, voiding. Tolerating a regular diet without nausea or vomiting. Normal lochia. Pain is well controlled with oral pain medications. Objective: Physical Exam: General - Alert and oriented, no apparent distress Abdomen - Soft, appropriately tender to palpation, non-distended, fundus firm at umbilicus Extremities - no edema, negative Enoc's bilaterally Incision- c/d/i Assessment: POD 1 RLTCS Plan: Routine care. Encourage breast feeding. Encourage ambulation. Ferrous sulfate supplementation. Plan for discharge tomorrow Vitals - Labs Vital Signs - I&O Vital Signs Date Time Temp Pulse Resp B/P (MAP) Pulse Ox O2 Delivery O2 Flow Rate FiO2 11/08/19 04:25 36.2 78 18 137/80 (99) 98 Room Air 11/07/19 23:47 36.4 86 16 105/60 (75) 98 Room Air 11/07/19 21:00 Room Air 11/07/19 20:00 36.7 71 16 113/64 (80) 96 Room Air 11/07/19 16:00 36.2 68 18 105/65 (78) 98 Room Air 11/07/19 14:37 98 0.00 11/07/19 11:00 35.4 16 121/77 (92) 100 Room Air 11/07/19 11:00 Room Air 11/07/19 10:44 36.0 16 116/75 (89) 100 Room Air 11/07/19 10:44 Room Air 11/07/19 10:26 36.2 16 90/58 (69) 98 Room Air 11/07/19 10:26 Room Air 11/07/19 10:11 36.2 16 105/41 (62) 100 Room Air 11/07/19 08:40 78 18 107/66 (80) Room Air I & O 11/08/19 07:00 Intake Total 1600 ml Output Total 5400 ml Balance -3800 ml Labs Laboratory Tests 11/08/19 06:07: White Blood Count 12.2H, Red Blood Count 3.91L, Hemoglobin 12.1, Hematocrit 37, Mean Corpuscular Volume 94, Mean Corpuscular Hemoglobin 31, Mean Corpuscular Hemoglobin Concent 33, Red Cell Distribution Width 15.5H, Platelet Count 197, Mean Platelet Volume 10.8H, Neutrophils (%) (Auto) 76H, Lymphocytes (%) (Auto) 14, Monocytes (%) (Auto) 7, Eosinophils (%) (Auto) 3, Basophils (%) (Auto) 0, Neutrophils # (Auto) 9.2H, Lymphocytes # (Auto) 1.7, Monocytes # (Auto) 0.9, Eosinophils # (Auto) 0.3, Basophils # (Auto) 0.0 DARRON LAUREANO DO Nov 08, 2019 08:34
[2019-11-08] MEDS: DOCUSATE SODIUM 100 MG (COLACE) CAP PO SCH ×2 (09:09→20:20)
[2019-11-08] MEDS: IBUPROFEN 600 MG (MOTRIN) TAB PO SCH ×3 (09:09→22:10)
[2019-11-08 09:14] VITALS: BP 114/59
--- NOTE | 2019-11-08 09:14 | NUR ---
initial shift assessment completed, see interventions for further.
--- NOTE | 2019-11-08 10:19 | NUR ---
ambulating in hallways with @ side
--- NOTE | 2019-11-08 14:36 | Anesthesia-Regional Post-Op ---
Regional Patient Condition Mental Status: Alert, Oriented x3 Circulation: Same as Pre-Op Headache: Absent Sensation: Full Recovery Motor Block: Absent Post Op Complications Complications None Follow Up Care/Instructions Patient Instructions None needed. Anesthesia/Patient Condition Patient is doing well, no complaints, stable vital signs, no apparent adverse anesthesia problems. SHERON POWELL DO Nov 08, 2019 14:36
[2019-11-08 15:57] VITALS: BP 109/67
--- NOTE | 2019-11-08 17:10 | NUR ---
up to shower.
--- NOTE | 2019-11-08 19:27 | NUR ---
report given to next shift.
[2019-11-08 22:10] VITALS: BP 106/68
--- NOTE | 2019-11-09 01:15 | NUR ---
Report from Barbara SZYMANSKI
[2019-11-09 04:00] VITALS: BP 112/56
[2019-11-09] MEDS: IBUPROFEN 600 MG (MOTRIN) TAB PO SCH (04:05)
[2019-11-09] MEDS: HYDROcodone/APAP 5 MG/325 MG (LORTAB) TAB PO PRN ×2 (04:05→10:53)
--- NOTE | 2019-11-09 07:57 | Postpartum Progress Note ---
Note Note Day # 2 Subjective: Ambulating, voiding. Tolerating a regular diet without nausea or vomiting. Normal lochia. Pain is slightly better today, constant 4/10 that is closer to 7 when getting in and out of bed, or when it is time to take medication again. Breast feeding. She does report that her incision is leaking small amounts of blood that she notices on her underwear. She also notes that there is an area of redness and irritation on her R groin where there was adhesive, and that the it debbie and redness is a normal reaction to adhesive for her. Objective: Physical Exam: General - Alert and oriented, no apparent distress Abdomen - Soft, appropriately tender to palpation, non-distended, fundus firm at umbilicus Extremities - no edema, negative Enoc's bilaterally Incision - Clean and intact. May have minimal sanguinous drainage Assessment: POD 2 RLTCS Plan: Routine care. Encourage breast feeding. Encourage ambulation. Ferrous sulfate supplementation. Plan for discharge today. Vitals - Labs Vital Signs - I&O Vital Signs Date Time Temp Pulse Resp B/P (MAP) Pulse Ox O2 Delivery O2 Flow Rate FiO2 11/09/19 04:00 36.4 80 18 112/56 (74) 99 Room Air 11/08/19 22:10 36.4 72 16 106/68 (81) 98 Room Air 11/08/19 15:57 36.7 69 18 109/67 (81) 96 Room Air 11/08/19 09:14 36.7 66 18 114/59 (77) 97 Room Air DAVIS GREER MED STUDENT Nov 09, 2019 07:57
[2019-11-09] MEDS: DOCUSATE SODIUM 100 MG (COLACE) CAP PO SCH (08:09)
[2019-11-09 12:00] VITALS: BP 115/62
--- NOTE | 2019-11-09 14:35 | NUR ---
Home instructions given with pt verbalizing understanding. To exit via wheelchair. Accompanied by and nursing staff.
== END 2019-11-09 14:35 | disposition home or self-care (01) | DRG 788 ==
LOC: LDRP 06:57
PROVIDERS: ADMIT Obstetrics & Gynecology; ATTEND Obstetrics & Gynecology
PROC: 10D00Z1 Extraction of Products of Conception, Low, Open Approach (ICD-10-PCS; principal; 2019-11-07 09:02)
DX: O34.211 Maternal care for low transverse scar from previous cesarean delivery (principal); Z37.0 Single live birth; O99.284 Endocrine, nutritional and metabolic diseases complicating childbirth; E03.9 Hypothyroidism, unspecified; Z3A.39 39 weeks gestation of pregnancy
CPT/HCPCS: 36415; 83033; 85025; 86850; 86900; 86901; 94664

== ENCOUNTER → 2022-02-12 | Outpatient (CLI) | payer BC, OTHER ==
[~2022-02-12] MED LIST changes: +DOCU-239 PO; +Hydrocodone Bit/Acetaminophen PO; +IBUP-844 PO; +SERT-412 PO; -SERT25TA5 PO
--- NOTE | 2022-02-12 15:38 | Diagnostic Imaging Report ---
EXAMINATION: Magnetic resonance imaging of the right ankle without contrast. DATE: February 12, 2022. COMPARISON: None. HISTORY: 31-year-old female, right ankle injury 1.5 weeks ago with right ankle pain. TECHNIQUE: Magnetic Resonance Imaging sequences were performed of the ankle without contrast. FINDINGS: TENDONS AND LIGAMENTS: The Achilles tendon is unremarkable. There is fluid in the flexor hallucis longus tendon sheath most likely relating to a normal tibiotalar joint communication. The amount of fluid in the tendon sheath is proportional to the amount of joint fluid present. There is no identified tear of the posterior flexor tendon. The peroneal tendons - peroneus longus and peroneus brevis - are intact. The anterior extensor tendons - tibialis anterior, extensor hallucis longus and extensor digitorum longus tendons - are intact. There is a complete tear of the anterior syndesmotic ligament from its fibular attachment site. The posterior syndesmotic ligament is intact. The anterior talofibular, posterior talofibular, and calcaneofibular ligaments are intact. The deep deltoid ligament is intact. The plantar fascia is intact. JOINTS: There is a small tibiotalar joint effusion. There is no subtalar joint effusion. There is no joint space loss. BONE: There is edema-like signal in the posterior malleolus without a visible fracture line likely relating to bone contusion. This is near the attachment site of the posterior syndesmotic ligament. There is no additional bone marrow signal abnormality. The talar dome is intact. BURSAE AND SOFT TISSUES: There is soft tissue edema both medially and laterally near the level of the ankle. IMPRESSION: 1. Complete tear of the anterior syndesmotic ligament at its fibular attachment site. Additional ankle ligaments are intact. 2. Bone contusion of the posterior malleolus. No acute fracture. Intact talar dome. 3. A small tibiotalar joint effusion. 4. Intact tendons. Dictated by: Dictated on workstation # [id number]
== END ==
LOC: RAD 14:00
PROVIDERS: ATTEND Nurse Practitioner Family
DX: S93.491A Sprain of other ligament of right ankle, initial encounter (principal); X58.XXXA Exposure to other specified factors, initial encounter
CPT/HCPCS: 73721

== ENCOUNTER 2022-06-17 03:48 | Emergency (ER) | payer BC ==
[~2022-06-17] VITALS: Ht 167.7 cm; Wt 90.0 kg
[2022-06-17 04:29] LABS: BILIRUBIN,URINE NEGATIVE (NEGATIVE); CLARITY,URINE CLEAR; COLOR,URINE YELLOW; GLUCOSE, URINE (UA) NEGATIVE (NEGATIVE); KETONES,URINE NEGATIVE (NEGATIVE); LEUKOCYTE ESTERASE ,URINE TRACE (NEGATIVE); NITRITE,URINE NEGATIVE (NEGATIVE); PROTEIN,URINE NEGATIVE (NEGATIVE)
[2022-06-17] MEDS ORDERED: LACTATED RINGERS 1,000 ML IV ONE (04:30)
[2022-06-17] MEDS ORDERED: ONDANSETRON 4 MG/2 ML (SDV) Z0FRAN IVP ONE (04:30)
[2022-06-17] MEDS ORDERED: PANTOPRAZOLE 40 MG (PROTONIX) VIAL IV ONE (04:30)
[2022-06-17 04:36] LABS: BACTERIA,URINE MODERATE /HPF; RBC,URINE 0-2 /HPF; WBC,URINE 0-2 /HPF
--- NOTE | 2022-06-17 04:58 | ED Abdominal Pain ---
General Chief Complaint: Abdominal/GI Problems Stated Complaint: ABD PAIN Nursing Triage Note: TO ED VIA POV AND AMBULATORY TO ROOM 9 WITH C/O "SEVERE" MID ABD PAIN THAT STARTED TUESDAY MORNING. PT STATES SHE HAD ERCP ON Tuesday06/15/22 AT 1600 AT [facility] IN [place], [place]. STATES SHE TOOK 2 LEFTOVER HYDROCODONE YESTERDAY, BUT NO PAIN MEDICINE AFTER 1800. C/O NAUSEA, DENIES VOMITING. Source of Information: Patient (FAITH TERRY ) History of Present Illness Date Seen by Provider: Jun 17, 2022 Time Seen by Provider: 04:20 Initial Comments PT ARRIVES VIA POV FROM HOME C/O "SEVERE" UPPER ABDOMINAL PAIN HAS HAD CHRONIC ABDOMINAL PAIN FOR MANY YEARS--HAD CHOLECYSTECTOMY 10 YEARS AGO, WITH NO IMPROVEMENT IN HER CHRONIC ABDOMINAL PAIN SHE ALSO HAS ONGOING INTERMITTENT NAUSEA AND VOMITING WELL SHE HAD AN ERCP ON Tuesday06/15/[address] PEREZ AT [place]--? SPHINCTEROTOMY ? PT STATES PAIN HAS GOTTEN WORSE SINCE THAT PROCEDURE STATES SHE HAS NOT BEEN OUT OF BED SINCE TUESDAY RATES PAIN 5/10 NOW, BUT IS MUCH WORSE WITH ANY MOVEMENT, COUGHING, BREATHING, ETC. HAS HAD NAUSEA TODAY, NO VOMITING HAD BM TUESDAY PM, AND A SMALL BM TUESDAY AM. HAD TEMP OF 99.5 AND CHILLS NO URINARY SYMPTOMS AND VOIDING A NORMAL AMOUNT NO COUGH NO SHORTNESS OF BREATH NO CHEST PAIN PT HAS BEEN PRESCRIBED PROTONIX BUT DOES NOT TAKE ON DAILY BASIS AND HAS NOT TAKEN ANY RECENTLY PT HAS ALSO BEEN PRESCRIBED PROMETHAZINE FOR NAUSEA, BUT HAS NOT TAKEN ANY RECEN TLY PT TOOK 2 LEFT OVER HYDROCODONE YESTERDAY, LAST ONE WAS AT 1800 PCP: DR. ORTEGA (ABBEY TERRYEmilio Pryor DO) Allergies and Home Medications Allergies Coded Allergies: Penicillins (Verified Allergy, Severe, HIVES/DIFFICULTY BREATHING, 11/07/19) Patient Home Medication List Home Medication List Reviewed: Yes (JASON SORIANO MD) Docusate Sodium (Dok) 100 Mg Capsule, 100 MG PO BID PRN for CONSTIPATION-1ST LINE Prescribed by: DARRNO LAUREANO on 11/07/19 0844 Famotidine (Famotidine) 20 Mg Tablet, 20 MG PO DAILY, (Reported) Entered as Reported by: DONNA BOYER on 01/11/171716 Hydrocodone/Acetaminophen (Hydrocodone-Acetamin 5-325 mg) 5 Mg-325 Mg Tablet, 1 TAB PO Q6H PRN for PAIN-MODERATE (5-7) Prescribed by: JASON SORIANO on 06/17/22 06 Ibuprofen (Ibu) 600 Mg Tablet, 600 MG PO Q6HR Prescribed by: DARRON LAUREANO on 11/07/19 0844 Levothyroxine Sodium (Levothyroxine Sodium) 150 Mcg Tablet, 150 MCG PO DAILY, (Reported) Entered as Reported by: VISH BELTRAN on 11/01/19 132 Nitrofurantoin Monohyd/M-Cryst (Macrobid 100 mg Capsule) 100 Mg Capsule, 1 TAB PO BID Prescribed by: JASON SORIANO on 06/17/22 0647 Ondansetron (Ondansetron Odt) 4 Mg Tab.rapdis, 4 MG SL Q6H PRN for NAUSEA/VOMITING Prescribed by: JASON SORIANO on 06/17/22638 Vit W-Ca,Fe,FA(<1 mg) ( Vitamins) 1 Each Tablet, 1 EACH PO DAILY, (Reported) Entered as Reported by: VISH BELTRAN on 11/01/19 132 Sertraline HCl (Sertraline HCl) 25 Mg Tablet, 25 MG PO DAILY, (Reported) Entered as Reported by: VISH BELTRAN on 11/01/19 132 Valacyclovir HCl (Valacyclovir) 500 Mg Tablet, 500 MG PO TID, (Reported) Entered as Reported by: DONNA BOYER on 01/11/17 171 [Hydrocodone Bit/Acetaminophen] Y TAB, 1-2 TAB PO Q6HR PRN for PAIN-MODERATE (5- 7) Prescribed by: DARRON LAUREANO on 11/07/19 0844 Review of Systems Review of Systems Constitutional: see HPI, chills, fever Respiratory: No Symptoms Reported Cardiovascular: No Symptoms Reported Gastrointestinal: See HPI, Abdominal Pain; Denies Constipated, Denies Diarrhea; Nausea, Poor Appetite, Vomiting Genitourinary: No Symptoms Reported Musculoskeletal: no symptoms reported; No back pain Skin: no symptoms reported Psychiatric/Neurological: No Symptoms Reported Endocrine: No Symptoms Reported Hematologic/Lymphatic: No Symptoms Reported (FAITH TERRY DO) Past Qzovurf-Pkbcyr-Awolfk Hx Patient Social History Tobacco Use?: No Substance use?: Yes Substance type: Marijuana Alcohol Use?: Yes Alcohol Frequency: Couple times a week (FAITH TERRY DO) Immunizations Up To Date PED Vaccines UTD: Yes Influenza Vaccine Up-to-Date: No; Not Current (FAITH TERRY DO) Seasonal Allergies Seasonal Allergies: Yes (FAITH TERRY DO) Past Medical History Surgeries: Yes Section, Gallbladder, Thyroidectomy, Tonsillectomy, Tubal Ligation Respiratory: Yes (when younger/no current asthma related issues) Asthma Cardiac: No Neurological: No Female Reproductive Disorders: Denies Sexually Transmitted Disease: Yes (HSV) HIV/AIDS: No Genitourinary: No Gastrointestinal: Yes (CHRONIC ABDOMINAL PAIN/N-V) Gastroesophageal Reflux, Gall Bladder Disease Musculoskeletal: No Endocrine: Yes (S/P THYROIDECTOMY) Hypothyroidsim HEENT: No (GLASSES) Cancer: No Psychosocial: Yes Anxiety, Depression Integumentary: No Blood Disorders: No Adverse Reaction/Blood Tranf: No (N/A) (FAITH TERRY DO) Family Medical History Alcoholism 19 FATHER FH: thyroid cancer 19 MOTHER Hypercholesterolemia 19 FATHER Hypertension 19 FATHER 19 MOTHER Thyroid disease 19 MOTHER PAST SURGICAL HISTORY: -TONSILLECTOMY -THYROIDECTOMY - X 2 -BILATERAL TUBAL LIGATION -CHOLECYSTECTOMY -ERCP 06/15/[address] [place] [address] RAGSDALE (FAITH TERRY DO) Physical Exam Vital Signs Vital Signs - First Documented 06/17/22 04:14 Temp 36.2 Pulse 65 Resp 16 B/P (MAP) 122/92 (102) Pulse Ox 99 O2 Delivery Room Air (JASON SORIANO MD) Vital Signs Capillary Refill : Less Than 3 Seconds (FAITH TERRY DO) Height/Weight/BMI Height: 5'7.00" Weight: 199lbs. 0.0oz. 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, no motor/sensory deficits, alert, normal mood/affect, oriented x 3 Skin: normal color, warm/dry; No jaundice, No rash (FAITH TERRY DO) Progress/Results/Core Measures Results/Orders Lab Results Laboratory Tests Test 06/17/22 04:15 06/17/22 04:45 Range/Units Urine Color YELLOW Urine Clarity CLEAR Urine pH 6.0 5-9 Urine Specific [place] 1.020 1.016-1.022 Urine Protein NEGATIVE NEGATIVE Urine Glucose (UA) NEGATIVE NEGATIVE Urine Ketones NEGATIVE NEGATIVE Urine Nitrite NEGATIVE NEGATIVE Urine Bilirubin NEGATIVE NEGATIVE Urine Urobilinogen 0.2 < = 1.0 MG/DL Urine Leukocyte Esterase TRACE H NEGATIVE Urine RBC (Auto) TRACE-I H NEGATIVE Urine RBC 0-2 /HPF Urine WBC 0-2 /HPF Urine Squamous Epithelial Cells 5-10 /HPF Urine Crystals NONE /LPF Urine Bacteria MODERATE H /HPF Urine Casts NONE /LPF Urine Mucus NEGATIVE /LPF Urine Culture Indicated YES White Blood Count 7.3 4.3-11.0 10^3/uL Red Blood Count 4.11 3.80-5.11 10^6/uL Hemoglobin 12.2 11.5-16.0 g/dL Hematocrit 37 35-52 % Mean Corpuscular Volume 89 80-99 fL Mean Corpuscular Hemoglobin 30 25-34 pg Mean Corpuscular Hemoglobin Concent 33 32-36 g/dL Red Cell Distribution Width 13.3 10.0-14.5 % Platelet Count 196 130-400 10^3/uL Mean Platelet Volume 11.5 9.0-12.2 fL Immature Granulocyte % (Auto) 0 % Neutrophils (%) (Auto) 62 42-75 % Lymphocytes (%) (Auto) 26 12-44 % Monocytes (%) (Auto) 10 0-12 % Eosinophils (%) (Auto) 2 0-10 % Basophils (%) (Auto) 1 0-10 % Neutrophils # (Auto) 4.5 1.8-7.8 10^3/uL Lymphocytes # (Auto) 1.9 1.0-4.0 10^3/uL Monocytes # (Auto) 0.7 0.0-1.0 10^3/uL Eosinophils # (Auto) 0.2 0.0-0.3 10^3/uL Basophils # (Auto) 0.1 0.0-0.1 10^3/uL Immature Granulocyte # (Auto) 0.0 0.0-0.1 10^3/uL Erythrocyte Sedimentation Rate 9 0-20 MM/HR Sodium Level 138 135-145 MMOL/L Potassium Level 3.4 L 3.6-5.0 MMOL/L Chloride Level 106 98-107 MMOL/L Carbon Dioxide Level 22 21-32 MMOL/L Anion Gap 10 5-14 MMOL/L Blood Urea Nitrogen 8 7-18 MG/DL Creatinine 0.79 0.60-1.30 MG/DL Estimat Glomerular Filtration Rate 101 BUN/Creatinine Ratio 10 Glucose Level 103 70-105 MG/DL Calcium Level 8.4 L 8.5-10.1 MG/DL Corrected Calcium 8.6 8.5-10.1 MG/DL Total Bilirubin 0.5 0.1-1.0 MG/DL Aspartate Amino Transf (AST/SGOT) 28 5-34 U/L Alanine Aminotransferase (ALT/SGPT) 19 0-55 U/L Alkaline Phosphatase 60 40-136 U/L C-Reactive Protein High Sensitivity 0.22 0.00-0.50 MG/DL Total Protein 6.3 L 6.4-8.2 GM/DL Albumin 3.8 3.2-4.5 GM/DL Amylase Level 122 25-125 U/L Lipase 107 H 8-78 U/L Procalcitonin 0.02 <0.10 NG/ML (JASON SORIANO MD) Medications Given in ED Current Medications Medications Dose Ordered Sig/[place] Route Start Time Stop Time Status Last Admin Dose Admin Iohexol 100 ml ONCE ONCE IV 06/17/22 05:30 06/17/22 05:33 DC 06/17/22 05:22 80 ML Lactated Ringer's 1,000 ml @ 0 mls/hr Q0M ONCE IV 06/17/22 04:30 06/17/22 04:32 DC 06/17/22 04:48 999 MLS/HR Ondansetron HCl 4 mg ONCE ONCE IVP 06/17/22 04:30 06/17/22 04:32 DC 06/17/22 04:48 4 MG Pantoprazole 40 mg ONCE ONCE IV 06/17/22 04:30 06/17/22 04:32 DC 06/17/22 04:48 40 MG Sodium Chloride 100 ml ONCE ONCE IV 06/17/22 05:30 06/17/22 05:33 DC 06/17/22 05:22 80 ML (JASON SORIANO MD) Vital Signs/I&O 06/17/22 06/17/22 04:14 06:43 Temp 36.2 36.2 Pulse 65 62 Resp 16 16 B/P (MAP) 122/92 (102) 99/59 Pulse Ox 99 99 O2 Delivery Room Air Room Air (JASON SORIANO MD) Blood Pressure Mean: 102 Progress Progress Note : Progress Note GIVEN : -IV FLUIDS -ZOFRAN -PROTONIX 0600--CARE TURNED OVER TO DR. SORIANO, CT RESULTS PENDING. (FAITH TERRY DO) Progress Note : Progress Note Care is turned over to myself pending the patient CT results. CT with some inflammatory changes which could be pancreatitis. Her lipase is just around 100. Likely this is mild and early pancreatitis based on her symptoms. I did a repeat abdominal exam on the patient, and it is reassuring with no signs of peritonitis. She has not had any episodes of nausea or vomiting here. I believe she can tolerate p.o. pain medicine at home and follow-up with her GI specialist as an outpatient. (JASON SORIANO MD) Departure Impression Primary Impression: Pancreatitis Qualified Codes: K85.80 - Other acute pancreatitis without necrosis or infection Disposition: HOME, SELF-CARE Condition: Stable Departure-Patient Inst. Decision time for Depature: 06:45 (JASON SORIANO MD) Referrals: SANTOS ORTEGA MD (PCP/Family) Primary Care Physician Patient Instructions: Acute Pancreatitis Add. Discharge Instructions: Your pancreas does show a little bit of inflammation on the CT. Your lipase which is a lab that tells us if you have pancreatitis, or inflammation of the p ancreas, was not quite high enough to be any type of severe pancreatitis. Is likely this little amount of inflammation of your pancreas is causing your pain. We will send some pain medicine to your pharmacy. Call your GI doctor for follow-up. If pain becomes more severe where you cannot be controlled with pain medicine, or you start vomiting uncontrollably for quite some time, please come back to the ER. It is easier if your follow-up, and ER visits are where your procedures were done. If you do come back to this ER it would be helpful if you bring any type of reads from any images such as CTs or ultrasounds of your abdomen that you have had in the past. Scripts Nitrofurantoin Monohyd/M-Cryst (Macrobid 100 mg Capsule) 100 Mg Capsule 1 TAB PO BID for 5 Days, #10 CAP Prov: JASON SORIANO MD 06/17/22 Ondansetron (Ondansetron Odt) 4 Mg Tab.rapdis 4 MG SL Q6H PRN for NAUSEA/VOMITING for 5 Days, #20 TAB Prov: JASON SORIANO MD 06/17/22 Hydrocodone/Acetaminophen (Hydrocodone-Acetamin 5-325 mg) 5 Mg-325 Mg Tablet 1 TAB PO Q6H PRN for PAIN-MODERATE (5-7) for 3 Days, #12 TAB Prov: JASON SORIANO MD 06/17/22 Work/School Note: Work Release Form Date Seen in the Emergency Department: Jun 17, 2022 Return to Work: Jun 19, 2022 Restrictions: No Restrictions FAITH TERRY DO Jun 17, 2022 04:58 JASON SORIANO MD Jun 17, 2022 06:39
[2022-06-17 05:01] LABS: BASOPHILS # (AUTO) 0.1 10^3/uL (0.0-0.1); BASOPHILS % (AUTO) 1 % (0-10); EOSINOPHILS # (AUTO) 0.2 10^3/uL (0.0-0.3); EOSINOPHILS % (AUTO) 2 % (0-10); HEMATOCRIT 37 % (35-52); HEMOGLOBIN 12.2 g/dL (11.5-16.0); LYMPHOCYTES # (AUTO) 1.9 10^3/uL (1.0-4.0); LYMPHOCYTES % (AUTO) 26 % (12-44); MEAN CORPUSCULAR HEMOGLOBIN 30 pg (25-34); MEAN CORPUSCULAR HGB CONC 33 g/dL (32-36); MEAN CORPUSCULAR VOLUME 89 fL (80-99); MEAN PLATELET VOLUME 11.5 fL (9.0-12.2); MONOCYTES # (AUTO) 0.7 10^3/uL (0.0-1.0); MONOCYTES % (AUTO) 10 % (0-12); NEUTROPHILS # (AUTO) 4.5 10^3/uL (1.8-7.8); NEUTROPHILS % (AUTO) 62 % (42-75); PLATELET COUNT 196 10^3/uL (130-400); WHITE BLOOD COUNT 7.3 10^3/uL (4.3-11.0)
[2022-06-17 05:09] LABS: ALBUMIN 3.8 GM/DL (3.2-4.5); POTASSIUM 3.4 MMOL/L (3.6-5.0)
[2022-06-17 05:10] LABS: CALCIUM 8.4 MG/DL (8.5-10.1)
[2022-06-17 05:11] LABS: TOTAL PROTEIN 6.3 GM/DL (6.4-8.2)
[2022-06-17 05:13] LABS: BILIRUBIN,TOTAL 0.5 MG/DL (0.1-1.0)
[2022-06-17 05:15] LABS: CREATININE SERUM 0.79 MG/DL (0.60-1.30)
[2022-06-17] MEDS ORDERED: IOHEXOL 350 MG/ML 100 ML (OMNIPAQUE 350) VIAL IV ONE (05:30)
[2022-06-17] MEDS ORDERED: HOLD METFORMIN - RECEIVED CONTRAST 20 ML VIAL IV SCH (05:30)
[2022-06-17] MEDS ORDERED: NS 100 ML (IVPB) BAG IV ONE (05:30)
[2022-06-17 05:52] LABS: ERYTHROCYTE SEDIMENTATION RATE 9 MM/HR (0-20)
--- NOTE | 2022-06-17 06:33 | Diagnostic Imaging Report ---
PROCEDURE: CT abdomen and pelvis with contrast. TECHNIQUE: Multiple contiguous axial images were obtained through the abdomen and pelvis after administration of intravenous contrast. Auto Exposure Controls were utilized during the CT exam to meet ALARA standards for radiation dose reduction. All CT scans use one or more of the following dose optimizing techniques: automated exposure control, MA and/or KvP adjustment based on patient size and exam type or iterative reconstruction. INDICATION: Epigastric pain status post ERCP on 06/15/2022 EXAMINATION: CT abdomen and pelvis with contrast 06/17/2022. COMPARISONS: None FINDINGS: There is evidence of previous cholecystectomy. The common duct is slightly prominent likely due to previous cholecystectomy changes, however correlate with recent ERCP findings. There is mild fat stranding within the mid mesentery inferior to the pancreas and stomach of uncertain etiology. Clinical exclusion of pancreatitis or gastritis recommended. There is no free air. No significant free fluid. There is free fluid, however within the pelvis. The appendix appears normal. Kidneys unremarkable. Liver and spleen normal. Adrenal glands unremarkable. There is no acute osseous abnormality. IMPRESSION: 1. Nonspecific inflammatory change within the mid mesentery of the mid and upper abdomen which could be due to pancreatitis, gastritis or duodenitis. Correlate with clinical symptoms. No adjacent fluid collections or free air appreciated. 2. Common ductal dilatation which could be due to prior cholecystectomy change, however correlate with ERCP findings. 3. Minimal free fluid in the pelvis possibly reactive or physiologic in nature. Dictated by: Dictated on workstation # [id number]
[2022-06-17] MEDS ORDERED: ONDA4TAB11 SL (06:39)
[2022-06-17] MEDS ORDERED: ACHD5005 PO (06:39)
[2022-06-17 06:43] VITALS: BP 99/59
[2022-06-17] MEDS ORDERED: NITR-65 PO (06:47)
== END 2022-06-17 06:52 | disposition home or self-care (01) ==
LOC: EDUNIT# 03:48 → ER 03:53
DX: K85.90 Acute pancreatitis without necrosis or infection, unspecified (principal); Z90.49 Acquired absence of other specified parts of digestive tract; Z88.0 Allergy status to penicillin
CPT/HCPCS: 36415; 74177; 80053; 81000; 82150; 83690; 84145; 84703; 85025; 85652; 86141; 87088; 93041

== ENCOUNTER 2022-12-28 10:16 | Emergency (ER) | payer BC ==
[~2022-12-28 10:16] MED LIST changes: +NITR-65 PO; +ONDA4TAB11 SL
[2022-12-28] MEDS ORDERED: NS IV 1000 ML 1,000 ML ONE (13:35)
[2022-12-28 15:20] VITALS: BP 106/60
[2022-12-28 16:02] LABS: HEMATOCRIT 44 % (35-52); MEAN CORPUSCULAR HEMOGLOBIN 30 pg (25-34); MEAN CORPUSCULAR HGB CONC 34 g/dL (32-36); MEAN CORPUSCULAR VOLUME 89 fL (80-99); MEAN PLATELET VOLUME 11.1 fL (9.0-12.2); PLATELET COUNT 256 10^3/uL (130-400); WHITE BLOOD COUNT 12.7 10^3/uL (4.3-11.0)
--- NOTE | 2022-12-28 16:28 | ED Abdominal Pain ---
General Stated Complaint: VOMITING| NAUSEA | FEVER Source of Information: Patient Exam Limitations: No Limitations (JASON BOCANEGRA) History of Present Illness Date Seen by Provider: December 28, 2022 Time Seen by Provider: 16:22 Initial Comments Patient is a 32-year-old female with a history of cyclic vomiting who presents the ED for upper abdominal pain and vomiting. Symptoms started Tuesday. She states that she spent the evening prior drinking alcohol. She states she drinks 6-7 alcohol beverages. She started vomiting Tuesday morning several times. Vomiting did subside until last night and early this morning. She reports vomiting bile. She reports at least 8-9 episodes. She states she has a history of similar symptoms. She has seen GI regarding her vomiting. She has a history of cholecystectomy. Denies of any NSAID use. Not concern for . She reports upper abdominal pain described as sharp and intermittent. She does have Zofran and promethazine and hycosamine that she has been taken at home without much improvement. Similar episodes in the past. Denies fever, chills, chest pain, cough, shortness of breath, headache, dizziness, diarrhea, hematochezia, hematemesis, dysuria, hematuria (JASON BOCANEGRA) Allergies and Home Medications Allergies Coded Allergies: Penicillins (Verified Allergy, Severe, HIVES/DIFFICULTY BREATHING, 11/07/19) Patient Home Medication List Home Medication List Reviewed: Yes (JASON BOCANEGRA) Docusate Sodium (Dok) 100 Mg Capsule, 100 MG PO BID PRN for CONSTIPATION-1ST LINE Prescribed by: DARRON LAUREANO on 11/07/19 0844 Famotidine (Famotidine) 20 Mg Tablet, 20 MG PO DAILY, (Reported) Entered as Reported by: DONNA BOYRE on 01/11/17 1717 Hydrocodone/Acetaminophen (Hydrocodone-Acetamin 5-325 mg) 5 Mg-325 Mg Tablet, 1 TAB PO Q6H PRN for PAIN-MODERATE (5-7) Prescribed by: JASON SORIANO on 06/17/22 0639 Ibuprofen (Ibu) 600 Mg Tablet, 600 MG PO Q6HR Prescribed by: DARRON LAUREANO on 11/07/19 0844 Levothyroxine Sodium (Levothyroxine Sodium) 150 Mcg Tablet, 150 MCG PO DAILY, (Reported) Entered as Reported by: VISH BELTRAN on 11/01/19 1329 Nitrofurantoin Monohyd/M-Cryst (Macrobid 100 mg Capsule) 100 Mg Capsule, 1 TAB PO BID Prescribed by: JASON SORIANO on 06/17/22 0647 Ondansetron (Ondansetron Odt) 4 Mg Tab.rapdis, 4 MG SL Q6H PRN for NAUSEA/VOMITING Prescribed by: JASON SORIANO on 06/17/22 0639 Vit W-Ca,Fe,FA(<1 mg) ( Vitamins) 1 Each Tablet, 1 EACH PO DAILY, (Reported) Entered as Reported by: VISH BELTRAN on 11/01/19 1329 Sertraline HCl (Sertraline HCl) 25 Mg Tablet, 25 MG PO DAILY, (Reported) Entered as Reported by: VISH BELTRAN on 11/01/19 1329 Valacyclovir HCl (Valacyclovir) 500 Mg Tablet, 500 MG PO TID, (Reported) Entered as Reported by: DONNA BOYER on 01/11/17 1718 [Hydrocodone Bit/Acetaminophen] Y TAB, 1-2 TAB PO Q6HR PRN for PAIN-MODERATE (5- 7) Prescribed by: DARRON LAUREANO on 11/07/19 0844 Review of Systems Review of Systems Constitutional: No chills, No diaphoresis, No fever, No malaise, No weakness EENTM: No Double Vision, No Eye Pain Cardiovascular: Denies Chest Pain Gastrointestinal: Abdominal Pain; Denies Diarrhea; Nausea Genitourinary: Denies Burning, Denies Discharge, Denies Drainage, Denies Frequency Musculoskeletal: No back pain, No joint pain Skin: No change in color, No change in hair/nails (JASON BOCANEGRA) All Other Systems Reviewed Negative Unless Noted: Yes (JASON BOCANEGRA) Past Vnzwngp-Dcnsvc-Splnlc Hx Immunizations Up To Date PED Vaccines UTD: Yes (JASON BOCANEGRA) Seasonal Allergies Seasonal Allergies: Yes (JASON BOCANEGRA) Past Medical History Surgeries: Yes Section, Gallbladder, Thyroidectomy, Tonsillectomy, Tubal Ligation Respiratory: Yes (when younger/no current asthma related issues) Asthma Cardiac: No Neurological: No Female Reproductive Disorders: Denies Sexually Transmitted Disease: Yes (HSV) HIV/AIDS: No Genitourinary: No Gastrointestinal: Yes (CHRONIC ABDOMINAL PAIN/N-V) Gastroesophageal Reflux, Gall Bladder Disease Musculoskeletal: No Endocrine: Yes (S/P THYROIDECTOMY) Hypothyroidsim HEENT: No (GLASSES) Cancer: No Psychosocial: Yes Anxiety, Depression Integumentary: No Blood Disorders: No Adverse Reaction/Blood Tranf: No (N/A) (JASON BOCANEGRA) Family Medical History Alcoholism 19 FATHER FH: thyroid cancer 19 MOTHER Hypercholesterolemia 19 FATHER Hypertension 19 FATHER 19 MOTHER Thyroid disease 19 MOTHER PAST SURGICAL HISTORY: -TONSILLECTOMY -THYROIDECTOMY - X 2 -BILATERAL TUBAL LIGATION -CHOLECYSTECTOMY -ERCP 06/15/[address] [place] [address] PEREZ. (JASON BOCANEGRA) Physical Exam Vital Signs Vital Signs - First Documented 12/28/22 12/28/22 10:50 15:20 Temp 36.2 Pulse 61 Resp 18 B/P (MAP) 144/87 (106) Pulse Ox 100 O2 Delivery Room Air (GERALD AYOUB MD) Vital Signs Capillary Refill : (JASON BOCANEGRA) Height/Weight/BMI Height: 5'7.00" Weight: 199lbs. 0.0oz. 90.388617yt; 32.00 BMI Method: General Appearance: WD/WN, no apparent distress HEENT: PERRL/EOMI, normal ENT inspection, TMs normal, pharynx normal Neck: non-tender, full range of motion, supple Respiratory: chest non-tender, lungs clear, normal breath sounds, no respiratory distress Cardiovascular: regular rate, rhythm, no edema, no gallop, no JVD Gastrointestinal: normal bowel sounds, soft, tenderness (Epigastric tenderness) (JASON BOCANEGRA) Progress/Results/Core Measures Results/Orders Lab Results Laboratory Tests Test 12/28/22 11:30 Range/Units White Blood Count 12.7 H 4.3-11.0 10^3/uL Red Blood Count 4.94 3.80-5.11 10^6/uL Hemoglobin 15.0 11.5-16.0 g/dL Hematocrit 44 35-52 % Mean Corpuscular Volume 89 80-99 fL Mean Corpuscular Hemoglobin 30 25-34 pg Mean Corpuscular Hemoglobin Concent 34 32-36 g/dL Red Cell Distribution Width 13.1 10.0-14.5 % Platelet Count 256 130-400 10^3/uL Mean Platelet Volume 11.1 9.0-12.2 fL Sodium Level 139 135-145 MMOL/L Potassium Level 4.1 3.6-5.0 MMOL/L Chloride Level 104 98-107 MMOL/L Carbon Dioxide Level 27 21-32 MMOL/L Anion Gap 8 5-14 MMOL/L Blood Urea Nitrogen 9 7-18 MG/DL Creatinine 0.70 0.60-1.30 MG/DL Estimat Glomerular Filtration Rate 116 BUN/Creatinine Ratio 13 Glucose Level 126 H 70-105 MG/DL Calcium Level 9.1 8.5-10.1 MG/DL Corrected Calcium 8.5-10.1 MG/DL Total Bilirubin 0.6 0.1-1.0 MG/DL Aspartate Amino Transf (AST/SGOT) 19 5-34 U/L Alanine Aminotransferase (ALT/SGPT) 15 0-55 U/L Alkaline Phosphatase 84 40-136 U/L Total Protein 7.4 6.4-8.2 GM/DL Albumin 4.6 H 3.2-4.5 GM/DL Lipase 15 8-78 U/L (GERALD AYOUB MD) My Orders Orders - GERALD AYOUB MD Ns Iv 1000 Ml (Sodium Chloride 0.9%) (12/28/22 13:35) Cbc No Diff (12/28/22 11:30) Comprehensive Metabolic Panel (12/28/22 11:30) Lipase (12/28/22 11:30) (GERALD AYOUB MD) Vital Signs/I&O 12/28/22 12/28/22 10:50 15:20 Temp 36.2 36.2 Pulse 61 62 Resp 18 18 B/P (MAP) 144/87 (106) 106/60 Pulse Ox 100 O2 Delivery Room Air (GERALD AYOUB MD) Departure Communication (PCP) Patient presents ED with upper abdominal pain with vomiting. No diarrhea. Denies hematemesis, chest pain, cough or shortness of breath. No known cardiac history. She has tenderness to her upper abdomen. History of pancreatitis. History of alcohol use last use was Tuesday before the symptoms started. Differ ential diagnosis of gastritis, pancreatitis, hepatitis, GERD, esophagitis, Cyclic vomiting. She denies any drug use not concern for . Due to the vomiting patient was given Zofran and started on a liter of fluid and was given morphine 4 mg for pain. Improvement of pain after morphine and improvement in nausea with Zofran. After liter fluid she was requesting a second liter which was provided. CBC showed white blood count of 12. Normal hemoglobin and platelets. Chemistry otherwise unremarkable. She did urinate but did not provide a sample. She is not concern for . She has no vaginal bleeding, vaginal discharge or urinary symptoms. Due to history of cholecystectomy and location of tenderness likely more gastritis, GERD, esophagitis, cyclic vomiting. Potentially secondary to alcohol versus her chronic vomiting. She states she has seen multiple GI specialist with upper EGD for this vomiting. Currently being managed by Dr. Hogan with nausea medication. Due to improvement of pain and reassuring lab work imaging was held at this time. She was observed here in the ED with improvement of symptoms. She is requesting to be discharged. Continue with nausea medication. Discussed adding Protonix. Recommend following up with your primary care physician this week for further evaluation. If any worsening vomiting or pain to return back to ED. (JASON BOCANEGRA) Impression Primary Impression: Abdominal pain Disposition: 01 HOME, SELF-CARE Condition: Stable Departure-Patient Inst. Decision time for Depature: 16:26 (JASON BOCANEGRA) Referrals: SANTOS HOGAN MD (PCP/Family) Primary Care Physician Patient Instructions: Abdominal Pain, Adult ED ATTENDING PHYSICIAN NOTE: I was physically present as attending physician in the emergency department during the care of this patient, but I was not directly involved in the decision making or delivery of care for this patient. (GERALD AYOUB MD) JASON BOCANEGRA December 28, 2022 16:28 GERALD AYOUB MD December 31, 2022 06:16
[2022-12-28] MEDS ORDERED: ONDANSETRON 4 MG/2 ML (SDV) Z0FRAN IVP ONE ×2 (17:00)
[2022-12-28] MEDS ORDERED: morphine INJ 4 MG/ML 1 ML (VIAL/SYRINGE) IVP ONE (17:00)
[2022-12-28] MEDS ORDERED: NS IV 1000 ML 1,000 ML IV SCH ×2 (17:00)
[2022-12-28 17:47] LABS: ALANINE AMINOTRANSFERASE 15 U/L (0-55); ALBUMIN 4.6 GM/DL (3.2-4.5); ALKALINE PHOSPHATASE 84 U/L (40-136); BILIRUBIN,TOTAL 0.6 MG/DL (0.1-1.0); BUN/CREATININE RATIO 13; CALCIUM 9.1 MG/DL (8.5-10.1); CARBON DIOXIDE 27 MMOL/L (21-32); CHLORIDE 104 MMOL/L (98-107); GFR ESTIMATED 116; GLUCOSE 126 MG/DL (70-105); LIPASE 15 U/L (8-78); POTASSIUM 4.1 MMOL/L (3.6-5.0); SODIUM 139 MMOL/L (135-145); TOTAL PROTEIN 7.4 GM/DL (6.4-8.2)
== END 2022-12-28 15:20 | disposition home or self-care (01) ==
LOC: ER 10:18 → EDUNIT# 12:07 → ER 15:20
DX: R10.13 Epigastric pain (principal); R11.2 Nausea with vomiting, unspecified; Z90.49 Acquired absence of other specified parts of digestive tract
CPT/HCPCS: 36415; 80053; 83690; 85027